=== PATIENT | male | born 1940 | race Caucasian/White ===

== ENCOUNTER 2018-09-04 08:20 | Inpatient (IN) | payer MEDICARE ==
[2018-08-24 10:31] LABS: BASOPHILS % (AUTO) 0.5 % (0-1); EOSINOPHILS # (AUTO) 0.1 X10'3 (0-0.9); LYMPHOCYTES # (AUTO) 0.7 X10'3 (1.1-4.8); LYMPHOCYTES % (AUTO) 12.8 % (21-51); MEAN CORPUSCULAR HEMOGLOBIN 27.7 PG (27.0-31.0); MEAN CORPUSCULAR HGB CONC 32.9 g/dL (33.0-36.5); MEAN CORPUSCULAR VOLUME 84.2 FL (78-98); MEAN PLATELET VOLUME 8.9 FL (7.4-10.4); MONOCYTES # (AUTO) 0.8 X10'3 (0-0.9); MONOCYTES % (AUTO) 14.2 % (2-12); NEUTROPHILS # (AUTO) 3.9 X10'3 (1.8-7.7); NEUTROPHILS % (AUTO) 71.5 % (42-75); PRE OP HEMATOCRIT 41.7 % (42.0-52.0); PRE OP HEMOGLOBIN 13.7 g/dL (14.0-17.9); PRE OP PLATELET COUNT 215 X10'3 (140-440); RED BLOOD COUNT 4.95 X10'6 (4.70-6.10); RED CELL DISTRIBUTION WIDTH 18.8 % (11.5-14.5)
[2018-08-24 10:44] LABS: ALBUMIN 3.9 G/DL (3.4-5.0); ALKALINE PHOSPHATASE 71 IU/L (46-116); BLOOD UREA NITROGEN 13 MG/DL (7-18); BUN/CREATININE RATIO 12.7 (5.4-32.0); CALCIUM 9.4 MG/DL (8.5-10.1); CHLORIDE 105 MMOL/L (99-107); CREATININE 1.02 MG/DL (0.60-1.10); PRE OP ALT 23 U/L (30-65); PRE OP ANION GAP 7 (8-16); PRE OP AST 25 U/L (10-37); PRE OP BILIRUB, TOTAL 0.3 MG/DL (0.0-1.0); PRE OP GLUCOSE 116 MG/DL (70-104); PRE OP POTASSIUM 4.2 MMOL/L (3.4-5.1); PRE OP SODIUM 141 MMOL/L (135-145); TOTAL PROTEIN 7.9 G/DL (6.4-8.2); eGFR 71 ML/MIN
[2018-08-24 10:47] LABS: PRE OP PROTIME 10.1 SECONDS (9.0-12.0)
[2018-08-24 10:55] LABS: CLARITY,URINE CLEAR (Clear); COLOR,URINE YELLOW (Yellow); GLUCOSE, URINE NEGATIVE (Neg); KETONES,URINE NEGATIVE (Neg); LEUKOCYTE ESTERASE ,URINE NEGATIVE (Neg); NITRITES, URINE NEGATIVE (Neg); OCCULT BLOOD,URINE NEGATIVE (Neg); PH,URINE 5.5 (4.8-8.0); PROTEIN,URINE NEGATIVE (Neg); UA COLLECTION TYPE NON-SPECIFIED; UROBILINOGEN,URINE 0.2 E.U/dL (0.2-1.0)
[2018-08-24 11:34] LABS: ANISOCYTOSIS 2+; ELLIPTOCYTES FEW; PLATELET ESTIMATE NORMAL; SCHISTOCYTES FEW
[2018-09-04] VITALS (21 sets, daily range): BP systolic 117–159; BP diastolic 54–94
[~2018-09-04] VITALS: Ht 170.2 cm; Wt 69.0 kg
[~2018-09-04 08:20] MED LIST: ZOLP5TAB8 PO; acetaminophen 325mg tablet PO ONE; cefazolin/dext.iso 2gm/100 ML IV ONE; celeCOXIB 100mg capsule PO ONE; famotidine 20mg tablet PO ONE; gabapentin 300mg capsule PO ONE; oxyCODONE SR 10mg (sust. release) tab PO ONE; ringers solution, lacted 1,000 ML IV SCH; tranexamic acid inj. 1,500 MG in normal saline 100ml IV soln 100 ML IV ONE
[2018-09-04] MEDS ORDERED: ROPIVAcaine 0.5% (5mg/ml) 30ml vial ONE ×2 (09:59→10:11)
[2018-09-04] MEDS ORDERED: bacitracin inj 150,000 UNIT in sodium chloride irrig. sol 3,000 ML IR ONE (10:00)
[2018-09-04] MEDS ORDERED: ringers solution, lacted 1,000 ML IV SCH (10:06)
[2018-09-04] MEDS ORDERED: hydrALAZINE 20mg/ml inj. IV PRN (10:10)
[2018-09-04] MEDS ORDERED: labetalol 20mg/4ml (5mg/ml) syringe IV PRN (10:10)
[2018-09-04] MEDS ORDERED: morphine 4 MG/ML inj SYRINge IV PRN ×2 (10:10)
[2018-09-04] MEDS ORDERED: ondansetron/PF 4mg/2ml inj IV PRN ×3 (10:10→12:55)
[2018-09-04] MEDS ORDERED: meperidine/PF 25mg/ml syringe IV PRN ×2 (10:10)
[2018-09-04] MEDS ORDERED: diphenhydrAMINE 50 mg/ml inj IV PRN (10:10)
[2018-09-04] MEDS ORDERED: tetracaine 1% (10mg/ml) pres. free inj. ONE (10:11)
[2018-09-04] MEDS ORDERED: fentaNYL/PF 50MCG/1 ML 2ML syringe ONE (10:23)
[2018-09-04] MEDS ORDERED: MIDAZolam 1mg/ml 10ml vial ONE (10:23)
[2018-09-04] MEDS ORDERED: LIDOcaine 2% (20mg/ml) 5ml vial ONE (10:42)
[2018-09-04] MEDS ORDERED: propofol inj 20 ML IV ONE ×2 (10:42)
[2018-09-04] MEDS ORDERED: ceFAZolin 1000mg inj ONE (10:49)
[2018-09-04] MEDS ORDERED: acetaminophen 325mg tablet PO PRN (12:55)
[2018-09-04] MEDS ORDERED: bisacodyl 10mg suppository rectal RC PRN (12:55)
[2018-09-04] MEDS ORDERED: oxyCODONE/APAP 5-325mg tablet PO PRN (12:55)
[2018-09-04] MEDS ORDERED: diphenhydrAMINE 25mg capsule PO PRN ×2 (12:55)
[2018-09-04] MEDS ORDERED: magnesium hydroxide 30ml (MOM) UD suspension PO PRN (12:55)
[2018-09-04] MEDS ORDERED: HYDROmorphone 1 mg/ml syringe IV PRN (12:55)
--- NOTE | 2018-09-04 12:55 | NUR ---
Received from OR via bed, accompanied by Anesthesiologist. Report received. Initial physical assessment done and recorded.
[2018-09-04] MEDS: gabapentin 300mg capsule PO SCH ×2 (13:00→20:28)
--- NOTE | 2018-09-04 14:15 | NUR ---
Discharge criteria met, report to receiving floor. Transferred to room in stable condition. Spinal level at L1 at transport
[2018-09-04] MEDS: ceFAZolin 1GM/D5W- ADD-VANTAGE 50 ML IV SCH ×2 (16:14→23:57)
[2018-09-04] MEDS: potassium cl 20mEq in 1/2 NS 1,000 ML IV SCH ×2 (16:15→20:28)
--- NOTE | 2018-09-04 18:33 | NUR ---
RECEIVED REPORT FROM JAMES PRESCOTT AND ASSUMED PATIENT CARE
[2018-09-04] MEDS: ascorbic acid 500mg tablet PO SCH (20:28)
[2018-09-04] MEDS ORDERED: sennosides 8.6mg tablet PO SCH (21:00)
[2018-09-05] MEDS: oxyCODONE/APAP 5-325mg tablet PO PRN ×4 (00:01→16:03)
[2018-09-05 02:00] VITALS: BP 142/84
[2018-09-05] MEDS: potassium cl 20mEq in 1/2 NS 1,000 ML IV SCH ×2 (05:19→12:55)
[2018-09-05 05:51] LABS: BASOPHILS % (AUTO) 0.4 % (0-1); EOSINOPHILS % (AUTO) 0.4 % (0-6); HEMATOCRIT 36.2 % (42.0-52.0); HEMOGLOBIN 11.8 g/dl (14.0-17.9); LYMPHOCYTES # (AUTO) 0.9 X10'3 (1.1-4.8); LYMPHOCYTES % (AUTO) 12.4 % (21-51); MEAN CORPUSCULAR HEMOGLOBIN 27.4 PG (27.0-31.0); MEAN CORPUSCULAR HGB CONC 32.6 g/dL (33.0-36.5); MEAN CORPUSCULAR VOLUME 84.1 FL (78-98); MEAN PLATELET VOLUME 9.1 FL (7.4-10.4); MONOCYTES # (AUTO) 1.2 X10'3 (0-0.9); NEUTROPHILS % (AUTO) 69.8 % (42-75); PLATELET COUNT 189 X10'3 (140-440); RED CELL DISTRIBUTION WIDTH 17.3 % (11.5-14.5); WHITE BLOOD COUNT 7.2 X10'3 (4.5-11.0)
[2018-09-05 06:00] VITALS: BP 141/82
[2018-09-05 06:12] LABS: ANION GAP 5 (8-16); CHLORIDE 108 MMOL/L (99-107); POTASSIUM 5.7 MMOL/L (3.5-5.1); SODIUM 141 MMOL/L (135-145); TOTAL CARBON DIOXIDE 28.5 MMOL/L (24-32)
--- NOTE | 2018-09-05 06:28 | NUR ---
REPORT GIVEN TO MARVA PRESCOTT
--- NOTE | 2018-09-05 06:30 | NUR ---
Patient in room [facility]TH[facility] 4013. I have received report from Rosa Maria PRESCOTT and had the opportunity to ask questions and assume patient care.
[2018-09-05] MEDS ORDERED: multivitamins, therapeutics tablet PO SCH (08:00)
[2018-09-05] MEDS: ascorbic acid 500mg tablet PO SCH (08:52)
[2018-09-05] MEDS: gabapentin 300mg capsule PO SCH ×2 (08:53→16:06)
--- NOTE | 2018-09-05 09:09 | NUR ---
DC FC per MD order. output urine: 900mL, output hemavac 125mL
[2018-09-05] MEDS ORDERED: ASPI-1264 PO (09:24)
[2018-09-05] MEDS ORDERED: WALKERFR (09:28)
[2018-09-05] MEDS ORDERED: warfarin 10mg tablet PO ONE (10:00)
--- NOTE | 2018-09-05 12:01 | NUR ---
Student Medication Administration:For this medication-pass time frame 7426-6655, all medications were reviewed, administered and documented per hospital policy by Elsa Blankenship. Student documentation:I have reviewed and agree with all interventions, assessments performed and documented by Elsa Blankenship.
--- NOTE | 2018-09-05 12:14 | NUR ---
Joint replacement consult: Pt seen by NIECY for written/verbal high protein ed. NIECY reviewed high protein needs for wound healing, immune strength, high protein foods, and protein supplementation options. [facility] contact information provided in case of further questions. Pt agrees to double meats w/ meals; NIECY d/w dietary. Addendum: 09/05/18 at [address] Amended: Links added.
--- NOTE | 2018-09-05 17:49 | NUR ---
Pt DC home with daughter. Pt escorted ABEL by [facility] staff & family member in WC. Pt brought front wheel walker home. VSS, RR even unlabored, denies pain, SOB, resp distress, N/V, vertigo at DC. All necessary DC documents given to pt to take home, home care discussed w/pt. Pt & Daughter verbalized understanding of aftercare. pt transferred safely into personal vehicle, thanked [facility] staff for his care.
[2018-09-05] MEDS ORDERED: celeCOXIB 100mg capsule PO SCH (20:00)
[2018-09-06] MEDS ORDERED: acetaminophen 325mg tablet PO PRN (12:55)
== END 2018-09-05 17:45 | disposition home or self-care (01) | DRG 470 ==
LOC: PAS IN 08:20 → EDSTATUS 10:45 → ORTHO 4S 14:20
PROVIDERS: ADMIT Specialist; ATTEND Specialist
PROC: 3E0T3BZ Introduction of Anesthetic Agent into Peripheral Nerves and Plexi, Percutaneous Approach (ICD-10-PCS; 2018-09-04)
PROC: 0SRD0JZ Replacement of Left Knee Joint with Synthetic Substitute, Open Approach (ICD-10-PCS; principal; 2018-09-04 10:21)
DX: M17.12 Unilateral primary osteoarthritis, left knee (principal); D62 Acute posthemorrhagic anemia; G47.00 Insomnia, unspecified
CPT/HCPCS: 36415; 73560; 80051; 80053; 81003; 82948; 85025; 85610; 85730; 87070; 97110; 97116; 97161; 97530; A6449; A6455; A7000; C1713; C1758; C1776; G0378; J0690; J2001; J2250; J2704; J2795; J3010; J7030; J7120